=== PATIENT | male | born 1935 | race Native Hawaiian/Other Pacific Islander ===

== ENCOUNTER 2020-09-08 13:57 | Outpatient (CLI) | payer OTHER, MEDICARE ==
[2020-09-08 14:36] LABS: PLATELET COUNT 168 K/uL (142-355)
[2020-09-08 15:05] LABS: POTASSIUM 3.9 mmol/L (3.6-5.2)
== END 2020-09-08 19:29 | disposition home or self-care (01) ==
LOC: LAB 13:57
PROVIDERS: ATTEND Nurse Practitioner Family
DX: Z00.00 Encounter for general adult medical examination without abnormal findings (principal); I10 Essential (primary) hypertension; E78.49 Other hyperlipidemia; M10.9 Gout, unspecified; E55.9 Vitamin D deficiency, unspecified; R53.1 Weakness; W19.XXXA Unspecified fall, initial encounter; I48.0 Paroxysmal atrial fibrillation; Z79.899 Other long term (current) drug therapy
CPT/HCPCS: 80053; 82306; 82607; 83036; 84439; 84443; 85027

== ENCOUNTER 2020-12-09 17:35 | Outpatient (CLI) | payer OTHER, MEDICARE ==
[2020-12-09 19:46] LABS: POTASSIUM 3.7 mmol/L (3.6-5.2)
== END 2020-12-09 19:55 | disposition home or self-care (01) ==
LOC: LAB 17:35
PROVIDERS: ATTEND Nurse Practitioner Family
DX: I10 Essential (primary) hypertension (principal); E78.49 Other hyperlipidemia; R73.09 Other abnormal glucose; E55.9 Vitamin D deficiency, unspecified; I48.0 Paroxysmal atrial fibrillation; R94.4 Abnormal results of kidney function studies; I48.91 Unspecified atrial fibrillation
CPT/HCPCS: 80053; 82306